=== PATIENT | female | born 1955 | race Caucasian/White ===

== ENCOUNTER 2023-11-04 13:19 | Inpatient (IN) ==
[2023-11-04] MEDS: Ondansetron 4 mg VIAL 2 MG/ML 2 ml VIAL IV ONE ×2 (14:32→20:11)
[2023-11-04] MEDS: Lactated Ringers 1000 ml BAG 1,000 ML IV ONE ×3 (14:32→22:02)
[2023-11-04] MEDS: Morphine 4 MG/ML VIAL (1 ml) IV ONE (14:32)
[2023-11-04 14:44] LABS: ABS Lymphocytes 0.6 10^3/uL (1.0-4.8); ABS Monocytes 0.9 10^3/uL (0.0-0.9); ABS Nucleated RBC 0.06 10^3/ul; Hematocrit 23.8 % (35-45); Hemoglobin 7.1 g/dL (11.5-14.3); Lymphocyte % 2.8 %; Mean Corpuscular Hemoglobin 24.1 pg (27-33); Mean Corpuscular Hgb Conc 29.6 g/dL (31-36); Mean Corpuscular Volume 81.5 fL (80-97); Mean Platelet Volume 8.1 fL (7.5-11.2); Nucleated Red Blood Cells % 0.3 %/100WBC (0.0-0.8); Platelet Count 335 10^3/uL (150-450); Red Blood Count 2.92 10^6/uL (3.63-4.92); White Blood Count 20.5 10^3/uL (3.8-11.8)
[2023-11-04] MEDS: Piperacillin/Tazobac 3.375 BAG 3.375 GM/100 ML BAG IV ONE (15:48)
[2023-11-04 16:17] LABS: ALT 10 U/L (7-52); Albumin 3.2 g/dL (3.2-5.2); Alkaline Phosphatase 88 U/L (35-149); Blood Urea Nitrogen 25 mg/dL (6-24); Calcium 8.6 mg/dL (8.6-10.3); Chloride 99 mmol/L (101-111); Creatinine, Serum 1.41 mg/dL (0.51-0.95); Globulin 3.1 g/dL (2-4); Glucose 137 mg/dL (70-100); Sodium 136 mmol/L (135-145); Total Bilirubin 0.8 mg/dL (0.2-1.0); Total Protein 6.3 g/dL (6.4-8.9); eGFR CKD-EPI 40.9 (>60)
[2023-11-04 16:18] LABS: Anion Gap 24 mmol/L (2-16); CO2 Carbon Dioxide 13 mmol/L (22-32)
[2023-11-04] MEDS: Iodixanol (CONTRAST) 320 MG/ML 100 ML SDV IV ONE ×2 (16:36→17:59)
[2023-11-04 18:19] LABS: Magnesium 1.9 mg/dL (1.9-2.7); Potassium Redraw 3.7 mmol/L (3.5-5.0)
[2023-11-05] MEDS ORDERED: Albuterol HFA INHALER 8 gm MDI INH PRN (01:09)
[2023-11-05 01:31] LABS: Immature Retic Fraction 0.48
[2023-11-05 02:55] LABS: ABS Basophils 0.1 10^3/uL (0.0-0.1); ABS Lymphocytes 0.7 10^3/uL (1.0-4.8); ABS Nucleated RBC 0.03 10^3/ul; Corrected Retic Count 0.9 % (0.5-1.5); Hematocrit 19.9 % (35-45); Hematocrit for Retic CNT 19.9 % (35-45); Hemoglobin 6.1 g/dL (11.5-14.3); Lymphocyte % 4.2 %; Mean Corpuscular Hgb Conc 30.5 g/dL (31-36); Mean Corpuscular Volume 78.7 fL (80-97); Mean Platelet Volume 7.7 fL (7.5-11.2); Nucleated Red Blood Cells % 0.2 %/100WBC (0.0-0.8); Platelet Count 248 10^3/uL (150-450); RBC Retic Count 2.52 10^6/ul (3.63-4.92); Red Blood Count 2.52 10^6/uL (3.63-4.92); Red Cell Distribution Width 22.3 % (12-17); White Blood Count 17.8 10^3/uL (3.8-11.8)
[2023-11-05 03:11] LABS: % Iron Saturation 5 % (15-55); .Transferrin 274 mg/dL (203-362); Iron < 20 ug/dL (50-212); Phosphorus 2.7 mg/dL (2.5-5.0); Total Iron Binding Capacity 384 mcg/dL (250-450); Unsaturated Iron Binding 364 ug/dL
[2023-11-05 03:13] LABS: Calcium 8.4 mg/dL (8.6-10.3); Creatinine, Serum 1.32 mg/dL (0.51-0.95); Globulin 2.9 g/dL (2-4); Magnesium 1.8 mg/dL (1.9-2.7); Potassium 3.5 mmol/L (3.5-5.0); Total Bilirubin 0.7 mg/dL (0.2-1.0); Total Protein 5.9 g/dL (6.4-8.9); eGFR CKD-EPI 44.3 (>60)
[2023-11-05] MEDS: Pantoprazole VIAL 40 MG VIAL IV SCH (03:17)
[2023-11-05 03:31] LABS: Ferritin 10.8 ng/mL (11-307)
[2023-11-05 04:36] LABS: Urine Appearance Clear; Urine Bacteria 2+ /HPF (Absent); Urine Bilirubin Negative (Negative); Urine Blood 1+ (Negative); Urine Color Light-Yellow; Urine Glucose 4+ (>=1000 mg/dL) (Negative); Urine Ketones 2+ (Negative); Urine Nitrite Negative (Negative); Urine Protein 1+ (>=30 mg/dL) (Negative); Urine Red Blood Cell 3+(>10/hpf) /HPF (0-Trace); Urine Squamous Epithelial Cell Present /HPF (Absent); Urine Urobilinogen Negative (Negative); Urine White Blood Cell 3+(>20/hpf) /HPF (0-Trace)
[2023-11-05] MEDS: cefTRIAXone 2 gm/50 mL D5W 2 GM/50 ML BAG IV SCH (05:30)
[2023-11-05] MEDS: SPIRIVA Respimat (tiotropium) 2.5 mcg/inh Inhaler INH SCH (07:47)
[2023-11-05] MEDS ORDERED: Zosyn per Pharmacy NOTE FOLLOW UP SCH (10:00)
[2023-11-05] MEDS: Piperacillin/Tazobac 3.375 BAG 3.375 GM/100 ML BAG IV ONE (13:20)
[2023-11-05] MEDS: Iodixanol (CONTRAST) 320 MG/ML 100 ML SDV IV ONE (15:59)
[2023-11-05 16:36] LABS: ABS Lymphocytes 0.6 10^3/uL (1.0-4.8); ABS Monocytes 0.9 10^3/uL (0.0-0.9); ABS Neutrophils 14.2 10^3/uL (1.5-7.6); ABS Nucleated RBC 0.03 10^3/ul; Eosinophil % 0.2 %; Hematocrit 29.8 % (35-45); Hemoglobin 9.5 g/dL (11.5-14.3); Lymphocyte % 3.7 %; Mean Corpuscular Hemoglobin 26.3 pg (27-33); Mean Corpuscular Hgb Conc 31.9 g/dL (31-36); Mean Corpuscular Volume 82.5 fL (80-97); Mean Platelet Volume 7.7 fL (7.5-11.2); Nucleated Red Blood Cells % 0.2 %/100WBC (0.0-0.8); Platelet Count 177 10^3/uL (150-450); Red Blood Count 3.61 10^6/uL (3.63-4.92); Red Cell Distribution Width 19.4 % (12-17); White Blood Count 15.7 10^3/uL (3.8-11.8)
[2023-11-05 17:13] LABS: Calcium 8.1 mg/dL (8.6-10.3); Creatinine, Serum 1.03 mg/dL (0.51-0.95); eGFR CKD-EPI 59.6 (>60)
[2023-11-05] MEDS: ZOSYN 3.375 GM Q8H per EXTENDED INFUSION IV SCH (17:42)
[2023-11-06 06:27] LABS: ABS Basophils 0.1 10^3/uL (0.0-0.1); ABS Lymphocytes 0.5 10^3/uL (1.0-4.8); ABS Monocytes 0.6 10^3/uL (0.0-0.9); ABS Nucleated RBC 0.02 10^3/ul; Eosinophil % 0.2 %; Lymphocyte % 2.8 %; Mean Corpuscular Hemoglobin 26.1 pg (27-33); Mean Corpuscular Hgb Conc 32.3 g/dL (31-36); Mean Corpuscular Volume 80.9 fL (80-97); Mean Platelet Volume 7.9 fL (7.5-11.2); Nucleated Red Blood Cells % 0.1 %/100WBC (0.0-0.8); Platelet Count 129 10^3/uL (150-450); Red Blood Count 3.83 10^6/uL (3.63-4.92); White Blood Count 17.3 10^3/uL (3.8-11.8)
[2023-11-06 07:05] LABS: Calcium 8.2 mg/dL (8.6-10.3); Creatinine, Serum 1.09 mg/dL (0.51-0.95); Magnesium 1.9 mg/dL (1.9-2.7); Phosphorus 2.2 mg/dL (2.5-5.0); Potassium 3.2 mmol/L (3.5-5.0); eGFR CKD-EPI 55.7 (>60)
[2023-11-07 06:14] LABS: ALT 18 U/L (7-52); Albumin 2.7 g/dL (3.2-5.2); Alkaline Phosphatase 88 U/L (35-149); Anion Gap 13 mmol/L (2-16); Blood Urea Nitrogen 21 mg/dL (6-24); CO2 Carbon Dioxide 26 mmol/L (22-32); Calcium 8.2 mg/dL (8.6-10.3); Chloride 102 mmol/L (101-111); Creatinine, Serum 1.06 mg/dL (0.51-0.95); Globulin 2.8 g/dL (2-4); Glucose 93 mg/dL (70-100); Magnesium 2.1 mg/dL (1.9-2.7); Sodium 141 mmol/L (135-145); Total Bilirubin 0.8 mg/dL (0.2-1.0); Total Protein 5.5 g/dL (6.4-8.9); eGFR CKD-EPI 57.6 (>60)
[2023-11-07 06:36] LABS: ABS Eosinophils 0.1 10^3/uL (0.0-0.5); ABS Lymphocytes 0.7 10^3/uL (1.0-4.8); ABS Monocytes 0.5 10^3/uL (0.0-0.9); Eosinophil % 0.7 %; Hematocrit 34.2 % (35-45); Hemoglobin 10.9 g/dL (11.5-14.3); Lymphocyte % 4.6 %; Mean Corpuscular Hemoglobin 26.2 pg (27-33); Mean Corpuscular Hgb Conc 31.9 g/dL (31-36); Mean Corpuscular Volume 82.3 fL (80-97); Mean Platelet Volume 7.8 fL (7.5-11.2); Platelet Count 95 10^3/uL (150-450); Red Blood Count 4.16 10^6/uL (3.63-4.92); Red Cell Distribution Width 20.2 % (12-17); White Blood Count 15.4 10^3/uL (3.8-11.8)
[2023-11-07] MEDS: KCL 20 MEQ/100 ML IVPREMIX 20 MEQ/100 ML BAG IV SCH (09:49)
[2023-11-07] MEDS ORDERED: Ondansetron ODT 4 mg TAB 4 MG TAB PO PRN (12:40)
[2023-11-07] MEDS ORDERED: fentaNYL 100 mcg/2 ml 50 MCG/ML VIAL ONE (14:58)
[2023-11-07] MEDS ORDERED: Midazolam 10 mg/10 ml VIAL 1 mg/ml 10 ml VIAL (10 mg) ONE (14:58)
[2023-11-07] MEDS ORDERED: Naloxone 0.4 mg VIAL 0.4 mg/ml 1 ml VIAL IV PUSH PRN (16:18)
[2023-11-07] MEDS ORDERED: Flumazenil 0.5 mg/5 ml 0.1 MG/ML 5 ml VIAL IV PRN (16:18)
[2023-11-07] MEDS: fentaNYL 100 mcg/2 ml 50 MCG/ML VIAL IV SLOW PU ONE (20:16)
[2023-11-07] MEDS: Midazolam 10 mg/10 ml VIAL 1 mg/ml 10 ml VIAL (10 mg) IV SLOW PU ONE (20:16)
[2023-11-07] MEDS: Lidocaine 2% JELLY 6 ML Topical TOPICAL ONE (20:16)
[2023-11-07] MEDS: Ondansetron 4 mg VIAL 2 MG/ML 2 ml VIAL IV ONE (20:17)
[2023-11-07] MEDS: Lactated Ringers 1000 ml BAG 1,000 ML IV ONE (23:37)
[2023-11-08 06:51] LABS: ABS Basophils 0.1 10^3/uL (0.0-0.1); ABS Eosinophils 0.2 10^3/uL (0.0-0.5); ABS Lymphocytes 0.7 10^3/uL (1.0-4.8); ABS Monocytes 0.6 10^3/uL (0.0-0.9); ABS Neutrophils 11.5 10^3/uL (1.5-7.6); ABS Nucleated RBC 0.01 10^3/ul; Eosinophil % 1.2 %; Hemoglobin 10.4 g/dL (11.5-14.3); Lymphocyte % 5.1 %; Mean Corpuscular Hemoglobin 26.1 pg (27-33); Mean Corpuscular Hgb Conc 31.5 g/dL (31-36); Mean Corpuscular Volume 82.7 fL (80-97); Mean Platelet Volume 8.2 fL (7.5-11.2); Nucleated Red Blood Cells % 0.1 %/100WBC (0.0-0.8); Platelet Count 96 10^3/uL (150-450); Red Blood Count 3.99 10^6/uL (3.63-4.92); Red Cell Distribution Width 20.4 % (12-17)
[2023-11-08 06:59] LABS: Calcium 8.1 mg/dL (8.6-10.3); Creatinine, Serum 1.06 mg/dL (0.51-0.95); Magnesium 1.9 mg/dL (1.9-2.7); Potassium 4.1 mmol/L (3.5-5.0); eGFR CKD-EPI 57.6 (>60)
[2023-11-08] MEDS ORDERED: Metoclopramide LIQUID 1 mg/ml 10 ml ORAL.SOLN (10 mg) PO PRN (10:50)
[2023-11-09 08:17] LABS: ABS Basophils 0.1 10^3/uL (0.0-0.1); ABS Eosinophils 0.1 10^3/uL (0.0-0.5); ABS Lymphocytes 0.6 10^3/uL (1.0-4.8); ABS Monocytes 0.6 10^3/uL (0.0-0.9); ABS Neutrophils 9.1 10^3/uL (1.5-7.6); Eosinophil % 1.3 %; Hematocrit 32.6 % (35-45); Hemoglobin 10.4 g/dL (11.5-14.3); Lymphocyte % 5.6 %; Mean Corpuscular Hemoglobin 26.4 pg (27-33); Mean Corpuscular Hgb Conc 31.9 g/dL (31-36); Mean Corpuscular Volume 82.8 fL (80-97); Mean Platelet Volume 8.4 fL (7.5-11.2); Platelet Count 76 10^3/uL (150-450); Red Blood Count 3.93 10^6/uL (3.63-4.92); Red Cell Distribution Width 20.7 % (12-17); White Blood Count 10.5 10^3/uL (3.8-11.8)
[2023-11-09 08:22] LABS: Calcium 8.5 mg/dL (8.6-10.3); Creatinine, Serum 0.97 mg/dL (0.51-0.95); Magnesium 1.9 mg/dL (1.9-2.7); Potassium 3.7 mmol/L (3.5-5.0)
[2023-11-09] MEDS: Potassium Chloride LIQUID 20 MEQ/15 ML LIQUID PO ONE (10:16)
[2023-11-09] MEDS ORDERED: Metoclopramide LIQUID 1 mg/ml 10 ml ORAL.SOLN (10 mg) PO PRN (11:30)
[2023-11-09] MEDS ORDERED: Metoclopramide 5 MG/ML VIAL (10 mg) IV SLOW PU SCH (16:30)
[2023-11-10 06:40] LABS: Calcium 8.5 mg/dL (8.6-10.3); Creatinine, Serum 0.96 mg/dL (0.51-0.95); Magnesium 1.9 mg/dL (1.9-2.7); Potassium 3.5 mmol/L (3.5-5.0); eGFR CKD-EPI 64.8 (>60)
[2023-11-10 07:22] LABS: Hematocrit 34.5 % (35-45); Mean Corpuscular Hemoglobin 26.1 pg (27-33); Mean Corpuscular Hgb Conc 31.8 g/dL (31-36); Mean Corpuscular Volume 82.2 fL (80-97); Red Cell Distribution Width 20.8 % (12-17); White Blood Count 10.1 10^3/uL (3.8-11.8)
[2023-11-10] MEDS: Metoclopramide 5 MG/ML VIAL (10 mg) IV SCH (08:31)
[2023-11-10 09:39] LABS: ABS Basophils 0.1 10^3/uL (0.0-0.1); ABS Eosinophils 0.2 10^3/uL (0.0-0.5); ABS Lymphocytes 0.8 10^3/uL (1.0-4.8); ABS Monocytes 0.7 10^3/uL (0.0-0.9); ABS Neutrophils 8.3 10^3/uL (1.5-7.6); Eosinophil % 1.8 %; Lymphocyte % 8.4 %; Mean Platelet Volume 8.7 fL (7.5-11.2); Platelet Count 76 10^3/uL (150-450)
[2023-11-10] MEDS: KCL 20 MEQ/100 ML IVPREMIX 20 MEQ/100 ML BAG IV SCH (15:45)
[2023-11-10] MEDS: D5W 1/2 NS KCl 20 meq 1000 ml 1,000 ML IV SCH (18:39)
[2023-11-10] MEDS: Metoprolol Tartrate 5 mg VIAL 5 ml VIAL (1 mg/ml) IV ONE (23:10)
[2023-11-11 06:38] LABS: Calcium 8.1 mg/dL (8.6-10.3); Creatinine, Serum 0.83 mg/dL (0.51-0.95); Magnesium 1.8 mg/dL (1.9-2.7); Potassium 3.9 mmol/L (3.5-5.0); eGFR CKD-EPI 77.2 (>60)
[2023-11-11 07:21] LABS: Hematocrit 32.3 % (35-45); Hemoglobin 10.2 g/dL (11.5-14.3); Mean Corpuscular Hemoglobin 26.1 pg (27-33); Mean Corpuscular Hgb Conc 31.7 g/dL (31-36); Mean Corpuscular Volume 82.3 fL (80-97); Mean Platelet Volume 8.4 fL (7.5-11.2); Platelet Count 91 10^3/uL (150-450); Red Blood Count 3.92 10^6/uL (3.63-4.92); Red Cell Distribution Width 21.3 % (12-17); White Blood Count 6.7 10^3/uL (3.8-11.8)
[2023-11-11] MEDS: Magnesium Sulfate 2 gm BAG 2 GM/50 ML BAG IVPB ONE (08:07)
[2023-11-11 08:16] LABS: ABS Eosinophils 0.2 10^3/uL (0.0-0.5); ABS Monocytes 0.6 10^3/uL (0.0-0.9); ABS Neutrophils 4.9 10^3/uL (1.5-7.6); ABS Nucleated RBC 0.01 10^3/ul; Anisocytosis 2+; Eosinophil % 2.6 %; Lymphocyte % 15.1 %; Microcytosis 1+; Nucleated Red Blood Cells % 0.1 %/100WBC (0.0-0.8)
[2023-11-11] MEDS ORDERED: Sulfur Hexaflouride MICROSPHR 25 MG VIAL ONE (09:16)
[2023-11-11 12:24] LABS: Albumin 3.3 g/dL (3.2-5.2); Calcium 8.5 mg/dL (8.6-10.3); Creatinine, Serum 0.88 mg/dL (0.51-0.95); Globulin 3.3 g/dL (2-4); Magnesium 2.9 mg/dL (1.9-2.7); Phosphorus 2.2 mg/dL (2.5-5.0); Potassium 3.8 mmol/L (3.5-5.0); Total Bilirubin 0.7 mg/dL (0.2-1.0); Total Protein 6.6 g/dL (6.4-8.9)
[2023-11-11 12:25] LABS: High Sensitivity Troponin 1 Hr 16 pg/mL (<15)
[2023-11-11 14:31] LABS: High Sensitivity Troponin 3 Hr 17 pg/mL (<15)
[2023-11-11] MEDS: PPN (PERIPHERAL) 24 HR with D10W 1000 ml BAG 1,000 ML, Amino Acid Infusion 10% 850 ML, ... IV SCH (17:00)
[2023-11-11] MEDS: Metoprolol Tartrate 5 mg VIAL 5 ml VIAL (1 mg/ml) IV SCH (17:00)
[2023-11-11 17:53] LABS: Pancreatic Elastase Feces 207 mcg/g
[2023-11-11 21:34] LABS: Calprotectin 390 mcg/g
[2023-11-11] MEDS: Nystatin TOP POWDER 15 GM BTL TOPICAL SCH (22:06)
[2023-11-12 06:50] LABS: Albumin 2.5 g/dL (3.2-5.2); Calcium 7.6 mg/dL (8.6-10.3); Creatinine, Serum 0.8 mg/dL (0.51-0.95); Globulin 2.6 g/dL (2-4); Magnesium 1.9 mg/dL (1.9-2.7); Phosphorus 2.4 mg/dL (2.5-5.0); Potassium 3.8 mmol/L (3.5-5.0); Total Bilirubin 0.5 mg/dL (0.2-1.0); Total Protein 5.1 g/dL (6.4-8.9); eGFR CKD-EPI 80.7 (>60)
[2023-11-12 08:21] LABS: Hematocrit 27.9 % (35-45); Hemoglobin 8.9 g/dL (11.5-14.3); Mean Corpuscular Hemoglobin 26.3 pg (27-33); Mean Corpuscular Volume 82.1 fL (80-97); Mean Platelet Volume 8.5 fL (7.5-11.2); Platelet Count 101 10^3/uL (150-450); Red Cell Distribution Width 21.4 % (12-17); White Blood Count 11.6 10^3/uL (3.8-11.8)
[2023-11-12 08:23] LABS: ABS Eosinophils 0.2 10^3/uL (0.0-0.5); ABS Lymphocytes 0.9 10^3/uL (1.0-4.8); ABS Monocytes 0.6 10^3/uL (0.0-0.9); ABS Neutrophils 9.8 10^3/uL (1.5-7.6); ABS Nucleated RBC 0.03 10^3/ul; Acanthocytes 1+; Burr Cells 1+; Eosinophil % 2.1 %; Hypochromasia 2+; Lymphocyte % 7.7 %; Nucleated Red Blood Cells % 0.2 %/100WBC (0.0-0.8)
[2023-11-12] MEDS: Ferric Gluconate IV 250 MG in NS 0.9% 250 ml 200 ML IVPB SCH (10:00)
[2023-11-12] MEDS: Diatrizoate Meg/Sod(CONTRAST) 30 ML ORAL.SOLN PO ONE (10:19)
[2023-11-12] MEDS ORDERED: Metoclopramide 5 MG/ML VIAL (10 mg) IV SCH (16:00)
[2023-11-12] MEDS: Metoclopramide 5 MG/ML VIAL (10 mg) IV SCH (16:24)
[2023-11-12] MEDS: Metoprolol Tartrate 5 mg VIAL 5 ml VIAL (1 mg/ml) IV SCH (16:25)
[2023-11-12] MEDS: TPN 24 HR with Dextrose 50% Water 500 ML, Amino Acid Infusion 10% 850 ML, Sterile Water... CENT\\PICC SCH (17:00)
[2023-11-13 06:03] LABS: ABS Eosinophils 0.3 10^3/uL (0.0-0.5); ABS Lymphocytes 0.9 10^3/uL (1.0-4.8); ABS Monocytes 0.6 10^3/uL (0.0-0.9); ABS Neutrophils 8.1 10^3/uL (1.5-7.6); ABS Nucleated RBC 0.02 10^3/ul; Eosinophil % 2.6 %; Hematocrit 29.8 % (35-45); Hemoglobin 9.7 g/dL (11.5-14.3); Lymphocyte % 9.3 %; Mean Corpuscular Hemoglobin 26.6 pg (27-33); Mean Corpuscular Hgb Conc 32.4 g/dL (31-36); Mean Platelet Volume 8.3 fL (7.5-11.2); Nucleated Red Blood Cells % 0.2 %/100WBC (0.0-0.8); Platelet Count 133 10^3/uL (150-450); Red Blood Count 3.64 10^6/uL (3.63-4.92); Red Cell Distribution Width 21.5 % (12-17); White Blood Count 9.9 10^3/uL (3.8-11.8)
[2023-11-13 06:20] LABS: Albumin 2.6 g/dL (3.2-5.2); Albumin/Globulin Ratio 0.9 (1-3); Calcium 8.1 mg/dL (8.6-10.3); Creatinine, Serum 0.72 mg/dL (0.51-0.95); Globulin 2.8 g/dL (2-4); Magnesium 1.8 mg/dL (1.9-2.7); Phosphorus 2.7 mg/dL (2.5-5.0); Potassium 3.6 mmol/L (3.5-5.0); Total Bilirubin 0.5 mg/dL (0.2-1.0); Total Protein 5.4 g/dL (6.4-8.9); eGFR CKD-EPI 91.6 (>60)
[2023-11-13] MEDS: Magnesium Sulfate 2 gm BAG 2 GM/50 ML BAG IVPB ONE (08:02)
[2023-11-13] MEDS: Potassium Phosphate IV 5 MMOL in NS 0.9% 250 ml 250 ML IVPB ONE (11:24)
[2023-11-13] MEDS: TPN 24 HR with Dextrose 50% Water 500 ML, Amino Acid Infusion 10% 850 ML, Sterile Water... CENT\\PICC SCH (17:00)
[2023-11-14 08:15] LABS: ABS Eosinophils 0.2 10^3/uL (0.0-0.5); ABS Lymphocytes 0.9 10^3/uL (1.0-4.8); ABS Monocytes 0.4 10^3/uL (0.0-0.9); ABS Neutrophils 6.9 10^3/uL (1.5-7.6); ABS Nucleated RBC 0.03 10^3/ul; Eosinophil % 2.2 %; Hematocrit 26.8 % (35-45); Hemoglobin 8.6 g/dL (11.5-14.3); Lymphocyte % 10.6 %; Mean Corpuscular Hemoglobin 26.5 pg (27-33); Mean Corpuscular Hgb Conc 31.9 g/dL (31-36); Mean Corpuscular Volume 83.1 fL (80-97); Mean Platelet Volume 8.6 fL (7.5-11.2); Nucleated Red Blood Cells % 0.3 %/100WBC (0.0-0.8); Platelet Count 143 10^3/uL (150-450); Red Blood Count 3.22 10^6/uL (3.63-4.92); Red Cell Distribution Width 21.2 % (12-17); White Blood Count 8.5 10^3/uL (3.8-11.8)
[2023-11-14 09:53] LABS: Creatinine, Serum 0.63 mg/dL (0.51-0.95); Magnesium 1.9 mg/dL (1.9-2.7); Phosphorus 2.6 mg/dL (2.5-5.0); Potassium 4.1 mmol/L (3.5-5.0); eGFR CKD-EPI 97.2 (>60)
[2023-11-14] MEDS: CMCS:DAPAGLIFLOZIN 10 MG TAB (NF) PO SCH (10:30)
[2023-11-14] MEDS: Metoclopramide LIQUID 1 mg/ml 10 ml ORAL.SOLN (10 mg) PO SCH (10:31)
[2023-11-15 06:15] LABS: Albumin 2.6 g/dL (3.2-5.2); Albumin/Globulin Ratio 0.9 (1-3); Calcium 8.3 mg/dL (8.6-10.3); Creatinine, Serum 0.68 mg/dL (0.51-0.95); Magnesium 1.8 mg/dL (1.9-2.7); Phosphorus 2.3 mg/dL (2.5-5.0); Potassium 4.3 mmol/L (3.5-5.0); Total Bilirubin 0.4 mg/dL (0.2-1.0); Total Protein 5.6 g/dL (6.4-8.9); eGFR CKD-EPI 95.4 (>60)
[2023-11-15 07:20] LABS: ABS Basophils 0.1 10^3/uL (0.0-0.1); ABS Eosinophils 0.2 10^3/uL (0.0-0.5); ABS Monocytes 0.6 10^3/uL (0.0-0.9); ABS Neutrophils 7.9 10^3/uL (1.5-7.6); ABS Nucleated RBC 0.01 10^3/ul; Eosinophil % 2.1 %; Hematocrit 31.7 % (35-45); Hemoglobin 9.9 g/dL (11.5-14.3); Lymphocyte % 10.5 %; Mean Corpuscular Hemoglobin 26.1 pg (27-33); Mean Corpuscular Hgb Conc 31.3 g/dL (31-36); Mean Corpuscular Volume 83.3 fL (80-97); Mean Platelet Volume 8.7 fL (7.5-11.2); Nucleated Red Blood Cells % 0.1 %/100WBC (0.0-0.8); Platelet Count 165 10^3/uL (150-450); Red Cell Distribution Width 20.9 % (12-17); White Blood Count 9.9 10^3/uL (3.8-11.8)
[2023-11-15] MEDS: Magnesium Sulfate 2 gm BAG 2 GM/50 ML BAG IVPB ONE (08:18)
[2023-11-15] MEDS: Potassium Phosphate IV 5 MMOL in NS 0.9% 250 ml 250 ML IVPB ONE (12:13)
[2023-11-15] MEDS: PEG 3000 GI LAVAGE 1 GALLON PO ONE (22:19)
[2023-11-16] MEDS: Metoclopramide 5 MG/ML VIAL (10 mg) IV SLOW PU PRN (02:59)
[2023-11-16] MEDS: Metoclopramide 5 MG/ML VIAL (10 mg) IV SLOW PU SCH (05:21)
[2023-11-16 06:00] LABS: ABS Basophils 0.1 10^3/uL (0.0-0.1); ABS Eosinophils 0.2 10^3/uL (0.0-0.5); ABS Monocytes 0.5 10^3/uL (0.0-0.9); ABS Neutrophils 10.7 10^3/uL (1.5-7.6); ABS Nucleated RBC 0.01 10^3/ul; Eosinophil % 1.9 %; Hematocrit 32.5 % (35-45); Hemoglobin 10.2 g/dL (11.5-14.3); Lymphocyte % 8.1 %; Mean Corpuscular Hemoglobin 25.9 pg (27-33); Mean Corpuscular Hgb Conc 31.3 g/dL (31-36); Mean Corpuscular Volume 82.9 fL (80-97); Mean Platelet Volume 8.2 fL (7.5-11.2); Nucleated Red Blood Cells % 0.1 %/100WBC (0.0-0.8); Platelet Count 250 10^3/uL (150-450); Red Blood Count 3.92 10^6/uL (3.63-4.92); Red Cell Distribution Width 21.4 % (12-17); White Blood Count 12.6 10^3/uL (3.8-11.8)
[2023-11-16] MEDS: PEG 3000 GI LAVAGE 1 GALLON PO ONE (06:21)
[2023-11-16 06:26] LABS: Calcium 8.7 mg/dL (8.6-10.3); Creatinine, Serum 0.78 mg/dL (0.51-0.95); Magnesium 2.1 mg/dL (1.9-2.7); Potassium 4.5 mmol/L (3.5-5.0); eGFR CKD-EPI 83.2 (>60)
[2023-11-16] MEDS: Lactated Ringers 1000 ml BAG 500 ML IV ONE (07:45)
[2023-11-16 07:48] LABS: Phosphorus 3.1 mg/dL (2.5-5.0)
[2023-11-16] MEDS: Enoxaparin 60 MG/0.6 ML SYR SUBCUT SCH (14:13)
[2023-11-17 06:15] LABS: ABS Basophils 0.1 10^3/uL (0.0-0.1); ABS Eosinophils 0.3 10^3/uL (0.0-0.5); ABS Lymphocytes 1.2 10^3/uL (1.0-4.8); ABS Monocytes 0.4 10^3/uL (0.0-0.9); ABS Neutrophils 4.7 10^3/uL (1.5-7.6); ABS Nucleated RBC 0.01 10^3/ul; Eosinophil % 3.7 %; Hematocrit 27.5 % (35-45); Hemoglobin 8.8 g/dL (11.5-14.3); Lymphocyte % 18.2 %; Mean Corpuscular Hemoglobin 26.6 pg (27-33); Mean Corpuscular Volume 83.2 fL (80-97); Mean Platelet Volume 7.8 fL (7.5-11.2); Nucleated Red Blood Cells % 0.1 %/100WBC (0.0-0.8); Platelet Count 224 10^3/uL (150-450); Red Cell Distribution Width 21.2 % (12-17); White Blood Count 6.7 10^3/uL (3.8-11.8)
[2023-11-17 07:28] LABS: Calcium 8.4 mg/dL (8.6-10.3); Creatinine, Serum 0.74 mg/dL (0.51-0.95); Magnesium 1.8 mg/dL (1.9-2.7); Phosphorus 2.4 mg/dL (2.5-5.0); Potassium 4.7 mmol/L (3.5-5.0); eGFR CKD-EPI 88.6 (>60)
[2023-11-17] MEDS: TPN 24 HR with Dextrose 50% Water 500 ML, Amino Acid Infusion 10% 850 ML, Sterile Water... CENT\\PICC SCH (17:00)
[2023-11-18 05:31] LABS: ABS Basophils 0.1 10^3/uL (0.0-0.1); ABS Eosinophils 0.2 10^3/uL (0.0-0.5); ABS Monocytes 0.4 10^3/uL (0.0-0.9); ABS Neutrophils 3.3 10^3/uL (1.5-7.6); ABS Nucleated RBC 0.01 10^3/ul; Eosinophil % 3.8 %; Hematocrit 29.3 % (35-45); Lymphocyte % 20.3 %; Mean Corpuscular Hemoglobin 32.2 pg (27-33); Mean Corpuscular Hgb Conc 30.9 g/dL (31-36); Mean Corpuscular Volume 104.4 fL (80-97); Mean Platelet Volume 8.2 fL (7.5-11.2); Nucleated Red Blood Cells % 0.1 %/100WBC (0.0-0.8); Platelet Count 210 10^3/uL (150-450)
[2023-11-18 12:43] LABS: Albumin 2.7 g/dL (3.2-5.2); Albumin/Globulin Ratio 0.9 (1-3); Calcium 8.6 mg/dL (8.6-10.3); Creatinine, Serum 0.77 mg/dL (0.51-0.95); Globulin 3.1 g/dL (2-4); Magnesium 1.8 mg/dL (1.9-2.7); Phosphorus 2.7 mg/dL (2.5-5.0); Potassium 4.9 mmol/L (3.5-5.0); Total Bilirubin 0.4 mg/dL (0.2-1.0); Total Protein 5.8 g/dL (6.4-8.9); eGFR CKD-EPI 84.5 (>60)
[2023-11-19 06:25] LABS: ABS Basophils 0.1 10^3/uL (0.0-0.1); ABS Eosinophils 0.2 10^3/uL (0.0-0.5); ABS Monocytes 0.4 10^3/uL (0.0-0.9); ABS Neutrophils 3.2 10^3/uL (1.5-7.6); ABS Nucleated RBC 0.01 10^3/ul; Eosinophil % 4.7 %; Hematocrit 29.8 % (35-45); Hemoglobin 9.4 g/dL (11.5-14.3); Mean Corpuscular Hemoglobin 30.7 pg (27-33); Mean Corpuscular Hgb Conc 31.4 g/dL (31-36); Mean Corpuscular Volume 97.8 fL (80-97); Mean Platelet Volume 8.1 fL (7.5-11.2); Nucleated Red Blood Cells % 0.2 %/100WBC (0.0-0.8); Platelet Count 244 10^3/uL (150-450); Red Blood Count 3.05 10^6/uL (3.63-4.92); Red Cell Distribution Width 23.7 % (12-17); White Blood Count 4.8 10^3/uL (3.8-11.8)
[2023-11-19 07:18] LABS: Anion Gap 2 mmol/L (2-16); Blood Urea Nitrogen 25 mg/dL (6-24); CO2 Carbon Dioxide 16 mmol/L (22-32); Calcium 9.4 mg/dL (8.6-10.3); Chloride 104 mmol/L (101-111); Creatinine, Serum 0.86 mg/dL (0.51-0.95); Sodium 122 mmol/L (135-145)
[2023-11-19 07:38] LABS: Glucose 1031 mg/dL (70-100)
[2023-11-19 08:52] LABS: Blood Urea Nitrogen 24 mg/dL (6-24); CO2 Carbon Dioxide 15 mmol/L (22-32); Calcium 9.7 mg/dL (8.6-10.3); Chloride 102 mmol/L (101-111); Creatinine, Serum 0.88 mg/dL (0.51-0.95)
[2023-11-19 09:35] LABS: Glucose 1519 mg/dL (70-100); Sodium 116 mmol/L (135-145)
[2023-11-19 09:38] LABS: Cholesterol 54 mg/dL; Triglycerides 800 mg/dL
[2023-11-19 10:07] LABS: Potassium, Whole Blood 5.2 mmol/L (3.4-4.5)
[2023-11-19 10:19] LABS: LDL Cholesterol Direct 25 mg/dL
[2023-11-19 11:17] LABS: Calcium 8.8 mg/dL (8.6-10.3); Creatinine, Serum 0.86 mg/dL (0.51-0.95); Potassium 5.2 mmol/L (3.5-5.0)
[2023-11-19 15:26] LABS: Magnesium 2.1 mg/dL (1.9-2.7)
[2023-11-19] MEDS: TPN 24 HR with Dextrose 50% Water 500 ML, Amino Acid Infusion 10% 850 ML, Sterile Water... CENT\\PICC SCH (16:44)
[2023-11-20 05:21] LABS: ABS Basophils 0.1 10^3/uL (0.0-0.1); ABS Eosinophils 0.3 10^3/uL (0.0-0.5); ABS Lymphocytes 1.1 10^3/uL (1.0-4.8); ABS Monocytes 0.5 10^3/uL (0.0-0.9); ABS Neutrophils 4.5 10^3/uL (1.5-7.6); Eosinophil % 3.9 %; Hematocrit 29.5 % (35-45); Hemoglobin 9.2 g/dL (11.5-14.3); Mean Corpuscular Hemoglobin 26.8 pg (27-33); Mean Corpuscular Hgb Conc 31.3 g/dL (31-36); Mean Corpuscular Volume 85.7 fL (80-97); Mean Platelet Volume 8.1 fL (7.5-11.2); Nucleated Red Blood Cells % 0.1 %/100WBC (0.0-0.8); Platelet Count 272 10^3/uL (150-450); Red Blood Count 3.44 10^6/uL (3.63-4.92); Red Cell Distribution Width 22.3 % (12-17); White Blood Count 6.5 10^3/uL (3.8-11.8)
[2023-11-20 05:36] LABS: Calcium 8.7 mg/dL (8.6-10.3); Creatinine, Serum 0.83 mg/dL (0.51-0.95); Magnesium 2.1 mg/dL (1.9-2.7); Potassium 4.9 mmol/L (3.5-5.0); eGFR CKD-EPI 77.2 (>60)
[2023-11-21 08:08] LABS: ABS Basophils 0.1 10^3/uL (0.0-0.1); ABS Eosinophils 0.4 10^3/uL (0.0-0.5); ABS Lymphocytes 1.2 10^3/uL (1.0-4.8); ABS Monocytes 0.5 10^3/uL (0.0-0.9); ABS Neutrophils 4.8 10^3/uL (1.5-7.6); ABS Nucleated RBC 0.01 10^3/ul; Eosinophil % 5.4 %; Hemoglobin 9.5 g/dL (11.5-14.3); Lymphocyte % 17.4 %; Mean Corpuscular Hemoglobin 27.4 pg (27-33); Mean Corpuscular Hgb Conc 31.6 g/dL (31-36); Mean Corpuscular Volume 86.7 fL (80-97); Mean Platelet Volume 7.9 fL (7.5-11.2); Nucleated Red Blood Cells % 0.1 %/100WBC (0.0-0.8); Platelet Count 284 10^3/uL (150-450); Red Blood Count 3.46 10^6/uL (3.63-4.92); White Blood Count 7.1 10^3/uL (3.8-11.8)
[2023-11-21 08:27] LABS: Albumin 2.9 g/dL (3.2-5.2); Albumin/Globulin Ratio 0.9 (1-3); Calcium 8.6 mg/dL (8.6-10.3); Creatinine, Serum 0.92 mg/dL (0.51-0.95); Globulin 3.2 g/dL (2-4); Total Bilirubin 0.3 mg/dL (0.2-1.0); Total Protein 6.1 g/dL (6.4-8.9); eGFR CKD-EPI 68.2 (>60)
[2023-11-21] MEDS ORDERED: Senna TAB 8.6 mg TAB PO PRN (15:12)
[2023-11-22 06:31] LABS: ABS Basophils 0.1 10^3/uL (0.0-0.1); ABS Eosinophils 0.4 10^3/uL (0.0-0.5); ABS Lymphocytes 1.3 10^3/uL (1.0-4.8); ABS Monocytes 0.5 10^3/uL (0.0-0.9); ABS Neutrophils 3.7 10^3/uL (1.5-7.6); Eosinophil % 7.3 %; Hematocrit 28.1 % (35-45); Hemoglobin 8.9 g/dL (11.5-14.3); Lymphocyte % 21.3 %; Mean Corpuscular Hemoglobin 27.5 pg (27-33); Mean Corpuscular Hgb Conc 31.7 g/dL (31-36); Mean Corpuscular Volume 86.9 fL (80-97); Platelet Count 265 10^3/uL (150-450); Red Blood Count 3.24 10^6/uL (3.63-4.92); Red Cell Distribution Width 24.6 % (12-17); White Blood Count 6.1 10^3/uL (3.8-11.8)
[2023-11-22 07:16] LABS: Calcium 8.8 mg/dL (8.6-10.3); Creatinine, Serum 1.08 mg/dL (0.51-0.95); Magnesium 1.9 mg/dL (1.9-2.7); Potassium 4.8 mmol/L (3.5-5.0); eGFR CKD-EPI 56.3 (>60)
[2023-11-23 06:26] LABS: ABS Basophils 0.1 10^3/uL (0.0-0.1); ABS Eosinophils 0.6 10^3/uL (0.0-0.5); ABS Lymphocytes 1.3 10^3/uL (1.0-4.8); ABS Monocytes 0.5 10^3/uL (0.0-0.9); ABS Neutrophils 3.8 10^3/uL (1.5-7.6); Eosinophil % 8.7 %; Hematocrit 28.2 % (35-45); Hemoglobin 8.9 g/dL (11.5-14.3); Lymphocyte % 21.2 %; Mean Corpuscular Hemoglobin 27.4 pg (27-33); Mean Corpuscular Hgb Conc 31.6 g/dL (31-36); Mean Corpuscular Volume 86.6 fL (80-97); Platelet Count 242 10^3/uL (150-450); Red Blood Count 3.26 10^6/uL (3.63-4.92); Red Cell Distribution Width 24.5 % (12-17); White Blood Count 6.3 10^3/uL (3.8-11.8)
[2023-11-23 07:08] LABS: Calcium 8.8 mg/dL (8.6-10.3); Creatinine, Serum 1.14 mg/dL (0.51-0.95); Magnesium 1.9 mg/dL (1.9-2.7); Potassium 4.5 mmol/L (3.5-5.0); eGFR CKD-EPI 52.8 (>60)
[2023-11-23] MEDS: Lactated Ringers 1000 ml BAG 1,000 ML IV SCH (08:31)
[2023-11-24 06:55] LABS: Calcium 8.5 mg/dL (8.6-10.3); Creatinine, Serum 0.91 mg/dL (0.51-0.95); Magnesium 1.6 mg/dL (1.9-2.7); Phosphorus 2.5 mg/dL (2.5-5.0); eGFR CKD-EPI 69.1 (>60)
[2023-11-24 07:05] LABS: ABS Basophils 0.1 10^3/uL (0.0-0.1); ABS Eosinophils 0.6 10^3/uL (0.0-0.5); ABS Lymphocytes 1.2 10^3/uL (1.0-4.8); ABS Monocytes 0.5 10^3/uL (0.0-0.9); ABS Neutrophils 3.7 10^3/uL (1.5-7.6); Anisocytosis 2+; Eosinophil % 9.6 %; Hemoglobin 8.3 g/dL (11.5-14.3); Hypochromasia 1+; Macrocytosis 1+; Mean Corpuscular Hgb Conc 32.2 g/dL (31-36); Mean Platelet Volume 7.8 fL (7.5-11.2); Microcytosis 1+; Platelet Count 229 10^3/uL (150-450); Red Blood Count 2.99 10^6/uL (3.63-4.92); Red Cell Distribution Width 25.3 % (12-17); White Blood Count 6.1 10^3/uL (3.8-11.8)
[2023-11-24] MEDS: Magnesium Sulfate 2 gm BAG 2 GM/50 ML BAG IVPB ONE (08:32)
[2023-11-24 10:09] VITALS: BP 105/50
[2023-11-24 10:19] LABS: Rapid COVID-19 Molecular Undetected (Undetected)
== END 2023-11-24 12:00 | DRG 871 ==
LOC: EDHOLD 13:19 → ED 13:19 → SUATTDRO 23:21 → MED 11-05 00:43 → SUATTDRO 11-06 09:00
PROVIDERS: ADMIT Internal Medicine; ATTEND Internal Medicine